=== PATIENT | male | born 1975 | race Caucasian/White ===

== ENCOUNTER 2020-11-30 09:55 | Emergency (ER) | payer BC, OTHER ==
[~2020-11-30] VITALS: Ht 172.7 cm; Wt 108.0 kg
--- NOTE | 2020-11-30 10:23 | NUR ---
PT STATES HE HAD R ACL REPAIR 8 DAYS AGO AND FOLLOWED UP WITH PORSCHE. PORSCHE SENT HIM HERE TO R/O DVT. PT STATES ONLY HX IS HTN. PT RATES PAIN 10. PT RESTING IN GURNEY, MONITORING IN PLACE, JESSICA AT THIS TIME, SON AT BEDSIDE, WCAVNI.
[2020-11-30] MEDS ORDERED: SODIUM CHLORIDE FLUSH 10ML SYR IVF ONE (10:30)
[2020-11-30] MEDS ORDERED: SODIUM CHLORIDE 0.9% 1,000ML IVBOLUS ONE (10:30)
[2020-11-30] MEDS ORDERED: PLEASE ENTER ALLERGIES MC SCH (10:30)
[2020-11-30] MEDS ORDERED: HYDROmorphone 1 MG/ML, 1ML INJ IVPush PRN (10:30)
[2020-11-30 10:50] LABS: BASOPHILS % (AUTO) 0 % (0-1); EOSINOPHILS % (AUTO) 3 % (1-7); LYMPHOCYTES % (AUTO) 9 % (22-44); MEAN CORPUSCULAR HEMOGLOBIN 31.4 pg (27.5-34.5); MEAN CORPUSCULAR HGB CONC 34.7 g/dL (33.2-36.2); MEAN PLATELET VOLUME 9.1 fL (7.4-10.4); MONOCYTES % (AUTO) 8 % (2-9); NEUTROPHILS % (AUTO) 80 % (42-75); PLATELET COUNT 237 x10^3/uL (130-400); RED BLOOD COUNT 5.49 x10^6/uL (4.38-5.82); RED CELL DISTRIBUTION WIDTH 13.2 % (9.4-14.8)
[2020-11-30 11:00] LABS: ALBUMIN 4.2 g/dL (3.4-5.0); ANION GAP 7 mmol/L (5-15); CHLORIDE 105 mmol/L (98-107); CREATININE 1.01 mg/dL (0.7-1.3)
[2020-11-30] MEDS ORDERED: HYDROmorphone 1 MG/ML, 1ML INJ ONE (11:02)
[2020-11-30 11:08] LABS: MD SCAN
[2020-11-30 12:03] VITALS: BP 162/97
== END 2020-11-30 12:10 | disposition home or self-care (01) ==
LOC: ED 11:35
DX: L03.115 Cellulitis of right lower limb (principal); M79.661 Pain in right lower leg; I10 Essential (primary) hypertension; R00.0 Tachycardia, unspecified
CPT/HCPCS: 36415; 71045; 80048; 82040; 85025; 87040; 93005; 93971; 96361; 96374; 99285; J1170; J7030